=== PATIENT | male | born 1935 | race Two or more races ===

== ENCOUNTER 2025-01-20 10:06 | Emergency (ER) | payer MEDICAID, SELFPAY ==
[2025-01-20] VITALS (7 sets, daily range): BP systolic 108–152; BP diastolic 61–79; PULSE 68–158; RESP 18–22; TEMP 36.4–36.9; O2SAT 94–96; BMI 25.8
--- NOTE | 2025-01-20 10:11 | EKG_ITS ---
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1935 Requested By: ED Temporary Provider Order Number: [id number] Reading MD: ED Temporary Provider Measurements Intervals [place] Rate: 82 P: 33 OK: 172 QRS: 46 QRSD: 157 T: -5 QT: 387 QTc: 454 Interpretive Statements SINUS RHYTHM RIGHT BUNDLE BRANCH BLOCK [120+ ms QRS DURATION, UPRIGHT V1, 40+ ms S IN I/aVL/V4/V5/V6] MODERATE T-WAVE ABNORMALITY, CONSIDER LATERAL ISCHEMIA [-0.1+ mV T-WAVE IN I/aVL/V5/V6] Compared to ECG 01/20/2025 10:23:45 Atrial fibrillation no longer present T-wave abnormality still present Possible ischemia still present /store/S0/[id number].pdf
--- NOTE | 2025-01-20 10:11 | EKG_ITS ---
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1935 Requested By: ED Temporary Provider Order Number: [id number] Reading MD: ED Temporary Provider Measurements Intervals [place] Rate: 125 P: NV: QRS: 72 QRSD: 140 T: -22 QT: 331 QTc: 479 Interpretive Statements ATRIAL FIBRILLATION WITH RAPID VENTRICULAR RESPONSE RIGHT BUNDLE BRANCH BLOCK [120+ ms QRS DURATION, UPRIGHT V1, 40+ ms S IN I/aVL/V4/V5/V6] ST DEVIATION AND MODERATE T-WAVE ABNORMALITY, CONSIDER LATERAL ISCHEMIA [-0.1+ mV T-WAVE IN I/aVL/V5/V6] Compared to ECG 12/12/2023 18:27:34 Right bundle-branch block now present Possible ischemia now present Sinus rhythm no longer present T-wave abnormality still present /store/S0/[id number].pdf
--- NOTE | 2025-01-20 10:24 | PC.NURSE ---
TRIAGED PATIENT. ASKED DR. COCHRAN FOR STROKE RULE PUT PER MD PATIENT IS NOT STROKE RULE OUT. PATIENT TAKEN TO ED ROOM 3
--- NOTE | 2025-01-20 10:55 | XR_ITS ---
Examination: AP chest single view TECHNIQUE: AP portable semiupright chest single view Date and time: January 20, 2025 1134 hours, comparison August 17, 2022 INDICATIONS: Chest pain and difficulty breathing today. FINDINGS: Retrocardiac gastric hernia. Mild prominence of ventricle. No pneumonia or pulmonary edema. Severe osteopenia. IMPRESSION: No pneumonia or pulmonary edema
[2025-01-20 11:21] LABS: Basophils # (Auto) 0.1 Thou/mm3 (0.0-0.2); Basophils % (Auto) 1 % (0-2.5); Eosinophils # (Auto) 0.0 Thou/mm3 (0.0-0.5); Eosinophils % (Auto) 0 % (0-10); Hematocrit 43.6 % (41.0-53.0); Hemoglobin 14.3 g/dL (13.5-16.0); Immature Granulocytes Auto 0.07 Thou/mm3 (0.00-0.00); Lymphocytes # (Auto) 1.3 Thou/mm3 (1.0-4.8); Lymphocytes % (Auto) 18 % (10-50); Mean Corpuscular HGB Conc 32.8 g/dl (31.0-37.0); Mean Corpuscular Hemoglobin 32.1 pg (25.0-35.0); Mean Corpuscular Volume 98 fL (80-100); Monocytes # (Auto) 0.6 Thou/mm3 (0.0-0.8); Monocytes % (Auto) 8 % (0-12); Neutrophils # (Auto) 5.2 Thou/mm3 (1.8-7.7); Neutrophils % (Auto) 71 % (37-80); Nucleated Red Blood Cell # 0.00 Thou/mm3 (0.00-0.00); Nucleated Red Blood Cell % 0 /100 WBC (0); Platelet Count 247 Thou/mm3 (140-440); RDW Standard Deviation 50.5 fL (35.1-43.9); Red Blood Count 4.45 Miln/mm3 (4.50-5.90); White Blood Count 7.3 Thou/mm3 (3.8-10.6)
--- NOTE | 2025-01-20 11:27 | EDNOTE_ITS ---
ED Weakness RME/HPI General Chief complaint: Weakness Stated complaint: WEAKNESS SINCE LAST NIGHT, PALPITATIONS. Time Seen by Provider: 01/20/25 10:43 Arrival date/time: 01/20/25 10:06 RME / HPI RME / HPI Narrative: 89 year old male with history of CVA, hypertension, hyperlipidemia, BPH presents to the ED for evaluation of generalized weakness beginning last night at about 08:30 PM. Accompanied by dizziness described as feeling drunk . States yesterday he felt mildly weak with occasional palpitations, same this morning. Patient additionally reports feeling the vitamin he took at 05:00 AM today is stuck in his throat. Denies fevers, chills, chest pain, cough, sore throat, nausea, vomiting, or urinary symptoms. Patient mentioned he is prescribed medication for his hypertension which he takes every 3-4 days . States at home when he feels his heart rate or blood pressure is elevated he takes a shot of tequila and when HR or blood pressure are low he drinks coke. Denies any known cardiac history. Denies consulting with cardiology. Related Data Home Medications ?Medication ?Instructions ?Recorded ?Confirmed lisinopril 20 mg tablet 20 mg PO QDAY 07/14/2208/17 Previous Rx's ?Medication ?Instructions ?Recorded aspirin 81 mg tablet,delayed 81 mg PO QDAY 30 days #30 tabs 07/16/22 release atorvastatin 80 mg tablet 80 mg PO HS 30 days #30 tabs 07/16/22 amiodarone 200 mg tablet 200 mg PO BID #60 tabs 01/20 apixaban 2.5 mg tablet 2.5 mg PO BID #60 tabs 01/20 Allergies Allergy/AdvReac Type Severity Reaction Status Date / Time Penicillins Allergy Unknown Verified 01/20/25 10:10 Review of Systems Review of Systems Systems Reviewed: All systems reviewed, normal except as documented Past Medical History Past Medical History NEUROLOGIC: Positive Cerebrovascular Accident CARDIAC: Positive Cardiac Disorders, Atrial Fibrillation, Hypercholesterolemia and Hypertension GASTROINTESTINAL: Positive Gastrointestinal Disorders and Gastrointestinal Bleed GENITOURINARY: Positive Genitourinary Disorders Surgical History SURGICAL: Positive Abdominal Surgery Social History SMOKING STATUS: Never smoker SUBSTANCE USE: does not use ED Exam Narrative Physical exam: GENERAL APPEARANCE: alert and oriented x 4, well-developed, well-nourished, on initial triage exam the patient appears uncomfortable. HEENT: Normocephalic, atraumatic; pupils equal, round, reactive to light; EOMI; mucous membranes pink, moist; oropharynx clear NECK: Supple LUNGS: CTABL; no wheezes, no rales, no rhonchi HEART: On initial triage exam heart rate was irregularly irregular rate in the 150s. During reassessment in ER room 3, the patient is in regular rhythm rate 90s ABDOMEN: non distended; normal BS; soft, no tenderness, no guarding, no rebound; no masses, no organomegaly, no hernia EXTREMITIES: atraumatic; no edema NEUROLOGIC: awake; alert and oriented x4; cranial nerves II-XII grossly intact PSYCHIATRIC: appropriate mood and affect SKIN: warm, dry, normal color; no rashes Course Course Course Narrative: 1245h: I have checked on patient, he is feeling improved heart rate has been stable in the 90s approximately. Was atrial fibrillation initially, reverted to sinus rhythm without intervention in ED. Labs and imaging reviewed with no significant acute concerning findings noted. Case was discussed with cardiology who recommends initiation of apixaban and amiodarone. Patient currently is vitally stable and okay for discharge home with recommendation for outpatient follow-up. Quality Measures none Orders Category Date Time Status EKG (ED ONLY) *Do not use* NOW Care 01/20/25 10:11 Completed EKG (ED ONLY) *Do not use* NOW Care 01/20/25 12:04 Completed EKG (ED Only) Stat Exams 01/20/25 10:11 Draft EKG (ED Only) Stat Exams 01/20/25 12:04 Ordered EKG (ED Only) Urgent Exams 01/20/25 10:11 Draft XR chest 1V portable Stat Exams 01/20/25 10:55 Completed B-Type Natriuretic Peptide Stat Lab 01/20/25 10:30 Completed CBC Stat Lab 01/20/25 10:30 Completed Comprehensive Metabolic Panel Stat Lab 01/20/25 10:30 Completed Drug Screen,Urine Stat Lab 01/20/25 11:53 Completed LDH (Lactate Dehydrogenase) Stat Lab 01/20/25 10:30 Completed Magnesium Stat Lab 01/20/25 10:30 Completed Partial Thromboplastin Time Stat Lab 01/20/25 10:30 Completed Prothrombin Time with INR Stat Lab 01/20/25 10:30 Completed Troponin I Stat Lab 01/20/25 10:30 Completed Urinalysis Stat Lab 01/20/25 11:53 Received Amiodarone [Cordarone] Med 01/20/25 12:59 Discontinued 200 mg PO X1 ONE Apixaban [Eliquis] Med 01/20/25 12:59 Discontinued 2.5 mg PO X1 ONE Vital Signs Vital signs: Vital Signs Pulse Rate 154 H 01/20/25 10:08 Weakness MDM Narrative MDM Narrative:: Izabela Moulton am scribing for and in the presence of Dr. Cook. Patient coming in for generalized weakness with palpitations. Noted to be in A- fib RVR on arrival although this resolved on its own during course of ED stay. On review of record, appears to have had atrial fibrillation in 2022. Discussed case with Dr. Green who recommends initiation of Eliquis twice daily and amiodarone 200 mg twice daily. Recommends outpatient follow-up with PCP. Patient currently vitally stable, normal heart rate, blood pressure stable, no additional symptoms at present. Okay for discharge home. Advised on cessation of further alcohol use, compliance with previously prescribed medications as well as medications from today given history of stroke in the past, and follow- up with PCP. Patient data External records reviewed:: [facility] previous records (I reviewed ED visit on 12/12/2023 ) Clinical information provided by:: patient Social determinants that could affect healthcare access:: alcohol use (Occasionally will drink tequila ) Patient has the following chronic illnesses:: CVA, hypertension, hyperlipidemia, BPH How is presenting disease/condition affected by chronic disease/condition?: exacerbated by Evaluation data The following diagnostics were reviewed and interpreted by me:: lab results, radiology exam(s) and EKG tracing(s) (EKG #1 10:23 AM. Atrial fibrillation with RVR, rate 125, no STEMI. EKG #2 @ 12:05 AM. Sinus rhythm, rate 82, no STEMI. ) Lab and/or radiology exams considered but not ordered:: None Interpretation Summary: Ordering Physician: Dee Cook MD Date of Service: 01/20/25 Procedure(s): XR chest 1V portable Accession Number(s): [id number] cc: Saroj Strong MD; Dee Cook MD~ Examination: AP chest single view TECHNIQUE: AP portable semiupright chest single view Date and time: January 20, 2025 1134 hours, comparison August 17, 2022 INDICATIONS: Chest pain and difficulty breathing today. FINDINGS: Retrocardiac gastric hernia. Mild prominence of ventricle. No pneumonia or pulmonary edema. Severe osteopenia. IMPRESSION: No pneumonia or pulmonary edema Dictated By: Saroj Strong MD Signed By: <Electronically signed by Saroj Strong MD in [place]> 01/20/25 1159 Medications / Prescriptions Medications or Prescriptions considered but not ordered:: None Medication administrations:: Medication Administration History Discontinued Medications Amiodarone HCl (Amiodarone Hcl 200 Mg Tablet) 200 mg PO X1 ONE Stop: 01/20/25 13:00 Apixaban (Apixaban 2.5 Mg Tablet) 2.5 mg PO X1 ONE Stop: 01/20/25 13:00 See above Consultations Consultation(s) initiated? (list below): Yes Consultation #1 (Physician, Specialty, Details): I spoke with audiology assistant Dr. Green. Discussed patients PMHx, HPI, ED course, exam findings, labs, and radiology results. Time: 12:35 Diagnosis Weakness Differential Diagnosis: acute myocardial infarction, anemia, hypothyroidism, sepsis and dehydration Most likely diagnosis given after review of the tests above:: Paroxysmal atrial fibrillation Admission Indicated Admission indicated?: not indicated Admission Request Was there a request for admission?: No Disposition Plan Disposition Plan: Discharge Discharge Attestation Discharge Attestation: The patient and all family members were given an opportunity to ask questions and understood the discharge instructions. Discharge instructions specifically effects, indications for sooner follow up or return to the emergency department, and the expected course of current diagnosis. Patient condition: Stable Discharge Plan Plan Patient Disposition: HOME (Self Care) Patient condition on transfer: Stable Prescriptions/Referrals Prescriptions/Med Rec: New amiodarone 200 mg tablet 200 mg PO BID Qty: 60 0RF apixaban 2.5 mg tablet 2.5 mg PO BID Qty: 60 0RF No Action lisinopril 20 mg tablet 20 mg PO QDAY Patient Comments: take 1 tablet by mouth once daily aspirin 81 mg Tablet,Delayed Release (Dr/Ec) 81 mg PO QDAY 30 Days Qty: 30 1RF atorvastatin 80 mg tablet 80 mg PO HS 30 Days Qty: 30 1RF Referrals: Nakul Green MD [Physician] - In 1 week Problem List Clinical Impression: Paroxysmal atrial fibrillation Patient/Caregiver Discharge Instructions Education Materials: AFL/Afib, Discharge Instructions for ..., Stroke Prevent Live W Atrial Fib, ED Atrial Fibrillation Print Language: British Stand Alone Forms: Bebe Award Info., Patient Portal Info Letter
[2025-01-20 11:41] LABS: Alanine Aminotransferase 25 U/L (10-49); Albumin, Serum 3.8 gm/dL (3.4-4.8); Albumin/Globulin Ratio 1.5 (1.2-2.2); Alkaline Phosphatase 113 U/L (46-116); Anion Gap 13 (7-16); Aspartate Amino Transferase 38 U/L (0-34); BUN/Creatinine Ratio 19 Ratio (12-20); Bilirubin,Total 1.6 mg/dL (0.3-1.2); Blood Urea Nitrogen 17 mg/dL (9-23); Calcium 8.3 mg/dL (8.3-10.6); Calcium (Corrected) 8.5 mg/dL (8.5-10.1); Carbon Dioxide 22.0 mMol/L (20.0-31.0); Chloride 108 mMol/L (98-107); Creatinine (Component) 0.9 mg/dL (0.6-1.3); Estimated Creatinine Clearance 51.2 mL/min (>60); Globulin 2.5 gm/dL (2.3-3.5); Glucose 113 mg/dL (74-106); LDH (Lactate Dehydrogenase) 231 U/L (120-246); Magnesium 1.6 mg/dL (1.6-2.6); Osmolality,Calculated 287 (275-295); Potassium 3.8 mMol/L (3.4-5.1); Sodium 143 mMol/L (136-145); Total Protein 6.3 gm/dL (5.7-8.2); Troponin I < 0.020 ng/mL (0.0-0.045); eGFR > 60 See Note
[2025-01-20 11:44] LABS: INR 1.0 (0.9-1.3); Partial Thromboplastin Time 26.4 Seconds (22.0-36.0); Prothrombin Time 11.4 Seconds (9.0-12.2)
[2025-01-20 11:46] LABS: B-Type Natriuretic Peptide 71 pg/mL (0-100)
[2025-01-20 12:31] LABS: Collection Type, Urine Clean Catch
[2025-01-20 12:55] LABS: Bilirubin,Urine Negative (Negative); Blood,Urine Negative (Negative); Clarity,Urine Clear (Clear/Hazy); Color,Urine Yellow (Lt Yel-Yel); Glucose, Urine Negative (Negative); Ketones,Urine 1+ (Negative); Leukocyte Esterase,Urine Positive (Negative); Nitrite,Urine Negative (Negative); PH,Urine 5.5 (5.0-7.0); Protein,Urine Trace (Neg - Trace); RBC,Urine 4 /hpf (0-3); Specific Gravity,Urine 1.028 (1.001-1.035); Squamous Epithelial Cell,Urine < 1 /hpf (0-5); Urobilinogen,Urine 2.0 mg/dL (0.0-1.0); WBC,Urine 7 /hpf (0-5)
[2025-01-20 13:02] LABS: Amphetamine/Methamp Scrn,U Negative (Negative); Barbiturate Screen,Urine Negative (Negative); Benzodiazepines Screen,Urine Negative (Negative); Benzoylecgonine Screen, Ur Negative (Negative); Fentanyl Screen,Urine Negative (Negative); Opiate Screen,Urine Negative (Negative); THC Screen,Urine Negative (Negative)
[2025-01-20] MEDS: AMIODARONE HCL 200 MG TABLET PO (13:21)
[2025-01-20] MEDS: APIXABAN 2.5 MG TABLET PO (13:21)
== END 2025-01-20 14:06 | disposition home or self-care (01) ==
LOC: SERX 14:11
PROVIDERS: Emergency Provider Family Medicine; PCP Family Medicine
DX: I48.0 Paroxysmal atrial fibrillation (principal); I10 Essential (primary) hypertension; E78.00 Pure hypercholesterolemia, unspecified; F10.90 Alcohol use, unspecified, uncomplicated; Z71.41 Alcohol abuse counseling and surveillance of alcoholic; Z86.73 Personal history of transient ischemic attack (TIA), and cerebral infarction without residual deficits; Z88.0 Allergy status to penicillin; Z79.82 Long term (current) use of aspirin; Z79.899 Other long term (current) drug therapy; Z79.01 Long term (current) use of anticoagulants
CPT/HCPCS: 36415; 71045; 80053; 80307; 81001; 83615; 83735; 83880; 84484; 85025; 85610; 85730; 93005; 99284; A9270